=== PATIENT | male | born 1985 | race Caucasian/White ===

== ENCOUNTER 2020-01-22 21:41 | Emergency (ER) | payer OTHER ==
[~2020-01-22] VITALS: Ht 190.5 cm; Wt 92.2 kg
[2020-01-22 21:50] VITALS: BP 141/93
--- NOTE | 2020-01-22 21:59 | NUR ---
PATIENT AMBULATORY WITH STEADY GAIT TO ROOM
--- NOTE | 2020-01-22 22:20 | NUR ---
This is a 34 yo male coming in for "I've been tested 5 times for COVID and it's all been nagative, I have flu symptoms for I'm gonna say 72 hours". Patient unable to specify exact symptoms, denies SOB, denies chest pain, denies n/v/d, denies abd pain. All monitoring in place, VSS, respirations even and unlabored, lung sounds clear throughout. NSR on library monitor. States "I just don't feel right, I've been trying to drink it away", patient reports 1 pint of vodka today. Denies usual every day ETOH. Monitoring in place, call light in reach
[2020-01-22 22:33] LABS: BASOPHILS % (AUTO) 0 % (0-1); EOSINOPHILS % (AUTO) 1 % (1-7); LYMPHOCYTES % (AUTO) 40 % (22-44); MEAN CORPUSCULAR HEMOGLOBIN 31.4 pg (27.5-34.5); MEAN CORPUSCULAR HGB CONC 33.4 g/dL (33.2-36.2); MEAN PLATELET VOLUME 7.6 fL (7.4-10.4); MONOCYTES % (AUTO) 6 % (2-9); NEUTROPHILS % (AUTO) 52 % (42-75); PLATELET COUNT 210 x10^3/uL (130-400); RED BLOOD COUNT 5.15 x10^6/uL (4.38-5.82); RED CELL DISTRIBUTION WIDTH 15.5 % (9.4-14.8)
[2020-01-22 22:34] LABS: MD NO
[2020-01-22 22:44] LABS: ANION GAP 7 mmol/L (5-15); CALCIUM 8.5 mg/dL (8.5-10.1); CHLORIDE 108 mmol/L (98-107); CREATININE 1.04 mg/dL (0.7-1.3)
[2020-01-22 22:45] LABS: ALANINE AMINOTRANSFERASE 226 U/L (12-78); ALBUMIN 3.7 g/dL (3.4-5.0)
[2020-01-22 22:47] LABS: ALKALINE PHOSPHATASE 62 U/L (45-117); BILIRUBIN,TOTAL 0.2 mg/dL (0.2-1.0)
--- NOTE | 2020-01-22 23:50 | NUR ---
TASK RN: PT ABLE TO AMBUALTE TO BATHROOM WITH STEADY GAIT.
[2020-01-23 00:02] LABS: MICROSCOPIC NOT IND
== END 2020-01-23 00:06 | disposition home or self-care (01) ==
LOC: ED 23:30
DX: R10.9 Unspecified abdominal pain (principal); B34.9 Viral infection, unspecified; R94.5 Abnormal results of liver function studies; F17.210 Nicotine dependence, cigarettes, uncomplicated
CPT/HCPCS: 36415; 71045; 80053; 81003; 85025; 99284; 99406